=== PATIENT | male | born 1965 | race American Indian/Alaskan Native ===

== ENCOUNTER 2016-06-16 10:00 | Inpatient (IN) | payer BC ==
[2016-06-16 11:06] LABS: Bilirubin,Urine NEG (Negative); Blood,Urine SM (Negative); Ketones,Urine NEG (Negative); Leukocyte Esterase,Urine NEG (Negative); Mucus,Urine FEW /HPF; Nitrite,Urine NEG (Negative); Protein,Urine <15 mg/dL mg/dL (Negative); Urobilinogen,Urine < 2.0 mg/dL (<2.0); WBC,Urine < 1.0 /HPF (0.0-6.0)
[2016-06-16 11:44] LABS: Basophils % (Auto) 0.4 % (0.0-1.8); Eosinophils % (Auto) 0.8 % (0.0-4.3); Hematocrit 44.2 % (35.5-45.6); Mean Corpuscular HGB Conc 32 % (32-34); Mean Corpuscular Hemoglobin 27 pg (28-32); Mean Corpuscular Volume 87 fl (84-94); Platelet Count 219 K/mm3 (140-440); Red Cell Distribution Width 14.6 % (13.2-15.2); White Blood Count 6.8 K/mm3 (4.5-11.0)
[2016-06-16 12:03] LABS: Anion Gap 16 mmol/L; Blood Urea Nitrogen 15 mg/dL (9-20); Calcium 8.9 mg/dL (8.4-10.2); Carbon Dioxide 26 mmol/L (22-30); Chloride 99.1 mmol/L (98-107); Glucose 77 mg/dL (75-100); Lipase 26 units/L (13-60); Potassium 4.1 mmol/L (3.6-5.0); Sodium 137 mmol/L (137-145)
--- NOTE | 2016-06-16 15:32 | Emergency Department Report ---
HPI - General Chief Complaint: Chest Pain Time Seen by Provider: 06/16/16 15:26 - HPI HPI: Chief complaint: Chest pain HPI: Patient complains of exertional chest pain intermittently for the last month. Patient states he had an episode yesterday that lasted 2-3 hours. Patient states when he has the chest pressure it is accompanied by shortness of breath but no diaphoresis. Patient states he has a slight dry cough but no fever. Patient is a smoker but denies hypertension, diabetes, elevated cholesterol. Patient states his father had heart disease and a questionable heart attack. No recent surgery or travel no history of DVT no leg pain or swelling Mode of arrival: private car Source: Patient Began: Yesterday the patient patient states pain began around 2:00 in the afternoon and lasted until around 4. Duration: See above Context: See above Quality: Heaviness Severity: Currently 0 out of 10 Improved with: Rest Worsened with: Exertion Associated signs and symptoms: See above ED Past Medical Hx - Social History Smoking Status: Current Every Day Smoker ED Review of Systems ROS: Stated complaint: CHEST PAIN /ABD PAIN Other details as noted in HPI ROS Constitutional: No fever ENT: No uri symptoms Cardiovascular: chest pain Respiratory: sob and cough GI: No nausea vomiting or diarrhea : No dysuria frequency or urgency, Skin: No rash Neuro: No focal weakness or numbness Psych: No depression Raghu/lymph: No edema Physical Exam - Physical Exam Vital Signs: Vital Signs 06/16/16 10:17 Temperature 98.1 F Pulse Rate 74 Respiratory 18 Rate Blood Pressure 142/92 O2 Sat by Pulse 100 Oximetry Physical Exam: GENERAL: The patient is well-developed well-nourished . HEENT: Normocephalic. Atraumatic. Extraocular motions are intact. Patient has moist mucous membranes. NECK: Supple. No meningitic signs are noted. There is no adenopathy noted. CHEST/LUNGS: Clear to auscultation. There is no respiratory distress noted. HEART/CARDIOVASCULAR: Regular. There is no tachycardia. There is no gallop rub or murmur. ABDOMEN: Abdomen is soft, nontender. Patient has normal bowel sounds. There is no abdominal distention. SKIN: There is no rash. There is no edema. There is no diaphoresis. NEURO: The patient is awake, alert, and oriented. The patient is cooperative. The patient has no focal neurologic deficits. The patient has normal speech. MUSCULOSKELETAL: There is no tenderness or deformity. There is no limitation range of motion. There is no evidence of acute injury. ED Course Vital Signs 06/16/16 10:17 Temperature 98.1 F Pulse Rate 74 Respiratory 18 Rate Blood Pressure 142/92 O2 Sat by Pulse 100 Oximetry ED Medical Decision Making - Lab Data Result diagrams: 06/16/16 11:26 06/16/16 11:26 Laboratory Tests 06/16/16 06/16/16 11:26 13:59 Troponin T < 0.010 < 0.010 Urinalysis within normal limits. - EKG Data -: EKG Interpreted by Me EKG shows normal: sinus rhythm Rate: normal (73) - Radiology Data interpreted by me: Chest x-ray consistent with COPD Critical care attestation.: If time is entered above; I have spent that time in minutes in the direct care of this critically ill patient, excluding procedure time. ED Disposition Clinical Impression: Exertional chest pain Disposition: OP ADMITTED IP TO THIS HOSP Is pt being admited?: Yes Does the pt Need Aspirin: Yes Condition: Fair Instructions: Chest Pain (ED) Referrals: PRIMARY CARE, [Primary Care Provider] - 3-5 Days Time of Disposition: 16:13 (admit to the hospitalist)
--- NOTE | 2016-06-16 16:14 | XRay Report ---
Chest 2 views: History: Chest pain. Findings: Normal cardiomediastinal silhouette the trachea is midline. Evidence of mild emphysema. No acute consolidation or pleural effusion. Impression: Mild emphysema. No acute lung changes.
[2016-06-16] MEDS ORDERED: ASPIRIN PO ONE (16:34)
--- NOTE | 2016-06-16 16:37 | Admit Criteria Form ---
Admission Criteria Documentation: COPD Clinical Indications for Admission to Inpatient Care (Place 'X' for any and all applicable criteria): Admission is indicated for ANY ONE of the following (1)(2)(3): [ ]I. Acute exacerbation by high-risk comorbidity (e.g., pneumonia, dysrhythmia, heart failure, pleural effusion, pneumothorax) or severe underlying COPD (e.g., steroid dependent) [X]II. Inpatient admission required rather than observation care (see Chronic Obstructive Pulmonary Disease: Observation Care) because of ANY ONE of the following: [X]a) New or pre-existing signs or symptoms of COPD (eg, dyspnea or Tachypnea at rest or with minimal activity) that persist despite outpatient and observation care treatment [ ]b) New-onset hypoxemia (room air SaO2 less than 90%, PO2 less than 60 mm Hg (8.0 kPa)) that persists despite outpatient and observation care treatment [ ]c) Worsening of pre-existing hypoxemia (eg, new or increased requirement for supplemental oxygen to maintain oxygenation at baseline level) that persists despite outpatient and observation care treatment, with oxygen treatment needs performable only in acute inpatient setting [ ]d) Hypercarbia (PCO2 greater than 40 mm Hg (5.3 kPa))-induced respiratory acidosis (pH less than 7.35) that persists despite outpatient and observation care treatment [ ]e) Supplemental oxygen or respiratory treatments for over 24 hours that are performable only in acute inpatient setting [ ]f) Chest tube placement with active evacuation (e.g., suction, drainage) (5) [ ]g) Other condition, treatment or monitoring requiring inpatient admission [ ]III. Planned invasive surgical or diagnostic procedures requiring acute- care hospitalization [ ]IV. Acute respiratory failure (e.g., uncompensated hypercarbia, severe hypoxemia) [ ]V. Severe comorbid condition (e.g., severe steroid myopathy, acute vertebral fracture) that has acutely worsened pulmonary function [ ]. Confusion state, lethargy, obtundation, stupor or coma Extended stay beyond goal length of stay may be needed for (31)(32): [ ]a ) Respiratory Failure. [ ]b) Severe or persisting hypoxemia or hypercarbia [ ]c) Severe or persistent dyspnea [ ]d) Comorbidities (e.g. chronic heart failure, atrial fibrillation with rapid response, pneumonia) [ ]e) Malnutrition The original [facility] content created by [facility] has been revised. The portions of the content which have been revised are identified through the use of italic text or in bold, and [facility] has neither reviewed nor approved the modified material. All other unmodified content is copyright [facility]. Please see references footnoted in the original [facility] edition 2016 Admission Criteria Met: Yes
[2016-06-16] MEDS ORDERED: ASPIRIN ONE (18:46)
--- NOTE | 2016-06-17 02:17 | Event Note ---
Date: 06/16/16 See H/p in reports Chest pain r/o CT
[2016-06-17] MEDS ORDERED: SODIUM CHLORIDE FLUSH SYRINGE 10 ML IV PRN (02:19)
[2016-06-17 03:34] LABS: Creatine Kinase 126 units/L (55-170); Creatine Kinase MB 2.4 ng/mL (0.0-4.0)
--- NOTE | 2016-06-17 07:55 | History and Physical Report ---
CHIEF COMPLAINT: Chest pain for the last one month. HISTORY OF PRESENT ILLNESS: A 50-year-old -[place] male comes in for intermittent chest pain for last one month. Similar episode yesterday, which lasted 2-3 hours. It's a retrosternal chest pressure with no radiation. No diaphoresis. Accompanied by shortness of breath, especially on exertion. Chest pain also more on exertion. The patient has a strong family history of heart attack at an early age in his father. PARISH score is 0. PAST MEDICAL HISTORY: None. SOCIAL HISTORY: Does smokes about a pack a day. PAST SURGICAL HISTORY: None. FAMILY HISTORY: Positive coronary artery disease. REVIEW OF SYSTEMS: CONSTITUTIONAL: No fever, no chills. No weight loss, no weight gain. HEENT: No sore throat. No postnasal drip. CARDIOVASCULAR AND RESPIRATORY: Left-sided chest pain with exertional chest pain present. No shortness of breath. No diaphoresis. No palpitations. GASTROINTESTINAL: No nausea, no vomiting, no diarrhea. GENITOURINARY: No dysuria, no flank pain. MUSCULOSKELETAL: No joint pains. No muscle pains. CENTRAL NERVOUS SYSTEM: No syncope, no seizures. SKIN: No rashes. A 14-point review of system was done and essentially otherwise negative other than chest pain. PHYSICAL EXAMINATION: GENERAL: Middle-aged male, cooperative during examination. VITAL SIGNS: Temperature is 98.1, pulse is 74, respirations 18, blood pressure 142/92, sats are 100%. HEENT: Unremarkable. Pupils equal and reactive. NECK: Supple, no lymphadenopathy, no thyromegaly. LUNGS: Clear to auscultation and percussion. Good air entry. CARDIOVASCULAR: S1, S2 heard. No gallop, no murmur, no rub. Apical impulse in the fifth intercostal space and midclavicular line. ABDOMEN: Soft and benign. No hepatosplenomegaly. No guarding, no rigidity. Hernial orifices are normal. EXTREMITIES: Good pedal pulses. No pedal edema. CENTRAL NERVOUS SYSTEM: Alert and oriented x 4. Nonfocal exam. SKIN: Normal. LABORATORY DATA: White count is 6800, H and H is 14.0 and 44.2, platelet count is 219,000. Sodium is 137, potassium is 4.1, chloride is 99, BUN and creatinine is 15 and 0.6. CK is less than 0.010. Urine is negative. EKG shows normal sinus rhythm, no ST or T-wave changes. Heart rate of 73. Chest x-ray consistent with COPD. ASSESSMENT AND PLAN: 1. Chest pain, rule out myocardial infarction, chest pain protocol. Lexiscan in the morning. Serial cardiac enzymes in the meantime. 2. Chronic obstructive pulmonary disease. The patient is a smoker for a long time. Chest x-ray consistent with COPD. DuoNebs q.6h. p.r.n. 3. Nicotine dependence. Nicoderm patch ordered. 4. Deep venous thrombosis prophylaxis, Lovenox 40 mg subcutaneous daily. JOB# [id number] FERMÍN/SUMMER
[2016-06-17] MEDS ORDERED: LEXISCAN IV ONE ×2 (08:40→08:49)
[2016-06-17] MEDS ORDERED: LOVENOX SUB-Q SCH (10:00)
[2016-06-17 10:23] LABS: Creatine Kinase MB 2.1 ng/mL (0.0-4.0)
[2016-06-17 10:25] LABS: Creatine Kinase 118 units/L (55-170)
--- NOTE | 2016-06-17 11:09 | Discharge Summary ---
Providers - Providers Date of Admission: 06/16/16 16:13 Date of discharge: 06/17/16 Attending physician: ABRAHAM GRAY 06/17/16 Consult to Cardiac Rehabilitation [CONS] Routine Reason For Exam: Phase I Primary care physician: [employer]PER[employer] Hospitalization Reason for admission: chest pain Condition: Fair Pertinent studies: stress test- normal Hospital course: Mr. Bowen presented to the ER with lt sided chest pain; he was ruled out for AMI based on negative cardiac enzymes, his stress test was negative; he also reported weight loss for the last few months with epigastric discomfort; his chest pain resolved prior to discharge. condition at discharge-stable 31 minutes spent on discharge Disposition: DISCHARGED TO HOME OR SELFCARE - Discharge Diagnoses (1) Epigastric abdominal pain Status: Acute (2) Exertional chest pain Status: Resolved (3) Weight loss Status: Chronic Core Measure Documentation - Palliative Care Palliative Care/ Comfort Measures: Not Applicable - Core Measures Any of the following diagnoses?: none Exam - Constitutional Vitals: Temp Pulse Resp BP Pulse Ox 98.5 F 57 L 16 134/79 98 06/17/16 06:39 06/17/16 06:39 06/17/16 08:00 06/17/16 06:39 06/17/16 08:00 General appearance: Present: no acute distress, cachectic - EENT Eyes: Present: PERRL, EOM intact. Absent: scleral icterus, conjunctival injection ENT: hearing intact, clear oral mucosa, no oropharyngeal erythema, no poor dentition - Neck Neck: Present: supple, normal ROM. Absent: enlarged thyroid, masses or JVD - Respiratory Respiratory effort: normal Respiratory: negative: diminished, rales, rhonchi, wheezing - Cardiovascular Rhythm: regular Heart Sounds: Present: S1 & S2. Absent: gallop - Extremities Extremities: no ischemia, pulses intact, pulses symmetrical, No edema - Abdominal Male genitourinary: Present: deferred - Rectal Rectal Exam: deferred - Integumentary Integumentary: Present: clear - Musculoskeletal Musculoskeletal: strength equal bilaterally - Psychiatric Psychiatric: appropriate mood/affect, intact judgment & insight, cooperative - Neurologic Neurologic: CNII-XII intact, moves all extremities Plan Activity: advance as tolerated Diet: regular Additional Instructions: prilosec OTC 1 tab daily Follow up with: PRIMARY CAREMD [Primary Care Provider] - 3-5 Days BERT DONOVAN MD [Staff Physician] - 7 Days (evaluation for epigastric pain and weight loss)
--- NOTE | 2016-06-17 11:16 | Treadmill Report ---
NUCLEAR STUDY REASON FOR STUDY: Chest pain. READING PHYSICIAN: Roman Whiting MD IMAGING PROTOCOL: The patient received 10 mCi of Technetium 99m Tetrofosmin for resting image and 28 mCi of Technetium 99m Tetrofosmin for stress imaging. The imaging for the whole procedure was completed 30-90 minutes following the initial injection of Technetium 99m tetrofosmin. The SPECT imaging in the 180 degree arc was performed in the right anterior oblique projection. Computerized reconstruction of the images was performed for analysis. IMAGING RESULTS: Normal cavity size from stress to rest. Normal distribution of radionuclide in the anterior, inferior, septal, and apical regions. Gated SPECT, EF 65% with no wall motion abnormalities noted. SUMMARY: 1. The patient had negative treadmill EKG. 2. Good exercise capacity 8 minutes of [place] protocol. 3. Elevated blood pressure during stress test. 4. Normal rest and stress myocardial perfusion scan. No significant stress ischemia. No wall motion abnormality. Gated SPECT, EF greater than 65%. [facility]# [id number] NEELIMA/SUMMER
[2016-06-17 11:47] VITALS: BP 127/91
--- NOTE | 2016-06-22 09:27 | Query- Chest Pain ---
Deasilvia Anderson Date:_06/22/16 Stablehand/CDS:_Aggie/Bret Witt Phone#:_[phone] Exercise your independent professional judgment when responding to query. Questions asked do not imply a particular answer is desired or expected. We greatly appreciate your clarification on this issue. Clinical Documentation States: 50 Y/O male admitted on 06/16/16 with symptoms of intermittent chest pain for the last month. Patient reports weight loss for the past few months with epigastric discomfort. Clinical Findings Show: Acute Myocardial infarction was ruled out based on negative cardiac enzymes, his stress test was negative. Please document the etiology of Chest Pain: [ ] Myocardial Infarction [ ] Pneumonia [ ] Mediastinitis [ ] Costochondritis [ ] Pulmonary Embolism [ ] Coronary Artery Disease [ ] GERD [ x] Other:gastritis vs PUD to r/o underlying GI malignancy [ ] Comment/Explanation: Present on Admission: [ x] Yes (Y) [ ] Clinically undeterminable (W) [ ] No(N) Please document response in your Progress Notes and/or Discharge Summary and indicate if the condition was present on admission. MTDD
== END 2016-06-17 11:44 | disposition home or self-care (01) | DRG 392 ==
LOC: ED 10:00 → 4A 16:13
PROVIDERS: ADMIT Internal Medicine; ATTEND Hospitalist
DX: K29.70 Gastritis, unspecified, without bleeding (principal); Z68.1 Body mass index [BMI] 19.9 or less, adult; F17.200 Nicotine dependence, unspecified, uncomplicated; J44.9 Chronic obstructive pulmonary disease, unspecified; R63.4 Abnormal weight loss; R10.13 Epigastric pain; Z82.49 Family history of ischemic heart disease and other diseases of the circulatory system
CPT/HCPCS: 36415; 71020; 78452; 80048; 81001; 82550; 82553; 83690; 84484; 85025; 93005; 93010; 93017; A9502; J1650; J2785